=== PATIENT | female | born 1965 | race Caucasian/White ===

== ENCOUNTER → 2018-02-10 | Outpatient (CLI) | payer MEDICAID | LOC: BRMIMAGING 14:01 | PROVIDERS: ATTEND Registered Nurse | DX: R22.32 Localized swelling, mass and lump, left upper limb (principal) | CPT/HCPCS: 73110-PO ==

== ENCOUNTER → 2018-03-02 | Outpatient (CLI) | payer MEDICAID | LOC: BRMIMAGING 13:22 | PROVIDERS: ATTEND Registered Nurse | DX: M67.432 Ganglion, left wrist (principal) | CPT/HCPCS: 76882-PO ==